=== PATIENT | female | born 1950 | race Caucasian/White ===

== ENCOUNTER 2021-12-02 12:35 | Outpatient (CLI) | payer MEDICARE, SELFPAY ==
--- NOTE | 2021-12-02 13:20 | CRLHL7_ITS ---
For Patients: As a result of the Century Cures Act, medical imaging exams and procedure reports are released immediately into your electronic medical record. You may view this report before your referring provider. If you have questions, please contact your health care provider. BILATERAL SCREENING MAMMOGRAM WITH COMPUTER-AIDED DETECTION TECHNIQUE: CC and MLO views were obtained. These mammographic images have been obtained using full-field digital technique. These mammographic images were interpreted with the benefit of computer-aided detection. COMPARISON FILM: 08/31/19, 07/01/18, 12/20/16 FINDINGS: There are scattered areas of fibroglandular density IMPRESSION: There is no radiographic evidence for malignancy. ASSESSMENT: BI-RADS Category 1: Negative RECOMMENDATION: Routine screening mammogram in 1 year. A lay language report of this examination will be provided to the patient. Dax Hayes M.D. Diagnostic/Musculoskeletal Radiologist [email or web address] CARLA/rose marie jkentrell/Dictated by: Dax Hayes MD @ 12/03/2021 7:48:00 AM (Electronically Signed)
== END 2021-12-02 12:36 | disposition home or self-care (01) ==
LOC: MAMMO 12:37
PROVIDERS: PCP Physician Assistant Medical; Visit Provider Physician Assistant Medical
DX: Z12.31 Encounter for screening mammogram for malignant neoplasm of breast (principal)
CPT/HCPCS: 77067

== ENCOUNTER 2022-06-04 10:22 | Outpatient (CLI) | payer MEDICARE, SELFPAY | END 2022-06-04 10:23 | disposition home or self-care (01) | PROVIDERS: PCP Physician Assistant Medical; Visit Provider Physician Assistant Medical | DX: Z00.00 Encounter for general adult medical examination without abnormal findings (principal); E03.9 Hypothyroidism, unspecified; E55.9 Vitamin D deficiency, unspecified; M85.80 Other specified disorders of bone density and structure, unspecified site | CPT/HCPCS: 80053; 80061; 82306; 84443 ==

== ENCOUNTER 2023-02-03 12:58 | Outpatient (CLI) | payer MEDICARE, SELFPAY ==
--- NOTE | 2023-02-03 13:20 | CRLHL7_ITS ---
For Patients: As a result of the Cures Act, medical imaging exams and procedure reports are released immediately into your electronic medical record. You may view this report before your referring provider. If you have questions, please contact your health care provider. BILATERAL SCREENING MAMMOGRAM WITH COMPUTER-AIDED DETECTION AND TOMOSYNTHESIS TECHNIQUE: CC and MLO views were obtained. These mammographic images have been obtained using full-field digital technique. These mammographic images were interpreted with the benefit of computer-aided detection. Breast Tomosynthesis was used in this interpretation. COMPARISON FILM: 12/02/21, 10/02/20, 08/31/19. FINDINGS: There are scattered areas of fibroglandular density IMPRESSION: There is no radiographic evidence for malignancy. ASSESSMENT: BI-RADS Category 1: Negative RECOMMENDATION: Routine screening mammogram in 1 year. A lay language report of this examination will be provided to the patient. Vick Madsen M.D. Diagnostic Radiologist [email or web address] HUMERA/lisa / be/Dictated by: Vick Madsen MD @ 02/04/2023 8:58:00 AM (Electronically Signed)
== END 2023-02-03 12:59 | disposition home or self-care (01) ==
LOC: MAMMO 12:59
PROVIDERS: PCP Physician Assistant Medical; Visit Provider Physician Assistant Medical
DX: Z12.31 Encounter for screening mammogram for malignant neoplasm of breast (principal)
CPT/HCPCS: 77067

== ENCOUNTER 2023-06-10 07:57 | Outpatient (CLI) | payer MEDICARE, SELFPAY | END 2023-06-10 07:58 | disposition home or self-care (01) | LOC: NFLDREF 06-11 11:56 | PROVIDERS: PCP Physician Assistant Medical; Referring Provider Physician Assistant Medical; Visit Provider Physician Assistant Medical | DX: E03.9 Hypothyroidism, unspecified (principal); E55.9 Vitamin D deficiency, unspecified; M06.9 Rheumatoid arthritis, unspecified; Z13.220 Encounter for screening for lipoid disorders | CPT/HCPCS: 80053; 80061; 82306; 84443 ==

== ENCOUNTER 2024-02-18 10:02 | Outpatient (CLI) | payer MEDICARE, SELFPAY ==
--- NOTE | 2024-02-18 10:15 | CRLHL7_ITS ---
For Patients: As a result of the Century Cures Act, medical imaging exams and procedure reports are released immediately into your electronic medical record. You may view this report before your referring provider. If you have questions, please contact your health care provider. BILATERAL SCREENING MAMMOGRAM WITH COMPUTER-AIDED DETECTION AND TOMOSYNTHESIS TECHNIQUE: CC and MLO views were obtained. These mammographic images have been obtained using full-field digital technique. These mammographic images were interpreted with the benefit of computer-aided detection. Breast Tomosynthesis was used in this interpretation. COMPARISON FILM: 02/03/23, 12/02/21, 10/02/20. FINDINGS: There are scattered areas of fibroglandular density. IMPRESSION: There is no radiographic evidence for malignancy. ASSESSMENT: BI-RADS Category 1: Negative RECOMMENDATION: Routine screening mammogram in 1 year. A lay language report of this examination will be provided to the patient. Vick Madsen M.D. Diagnostic Radiologist [email or web address] SP/Dictated by: Vick Madsen MD @ 02/18/2024 11:08:00 AM (Electronically Signed)
== END 2024-02-18 10:03 | disposition home or self-care (01) ==
PROVIDERS: PCP Physician Assistant Medical; Visit Provider Physician Assistant Medical
DX: Z12.31 Encounter for screening mammogram for malignant neoplasm of breast (principal)
CPT/HCPCS: 77063; 77067

== ENCOUNTER 2024-07-13 07:24 | Outpatient (CLI) | payer MEDICARE, SELFPAY | END 2024-07-13 07:25 | disposition home or self-care (01) | PROVIDERS: PCP Physician Assistant Medical; Visit Provider Physician Assistant Medical | DX: E03.9 Hypothyroidism, unspecified (principal); E55.9 Vitamin D deficiency, unspecified; M06.9 Rheumatoid arthritis, unspecified | CPT/HCPCS: 80053; 80061; 82306; 84443 ==

== ENCOUNTER 2024-08-03 14:20 | Outpatient (CLI) | payer MEDICARE, SELFPAY ==
--- OUTSIDE RECORDS SUMMARY | 2024-07-25 10:15 | XMS_ITS | Encounter Summary ---
[facility] Address [address] [place] [address] Care Team Providers Care Machine Precision Engraver Name Role Phone Kendra Gruber PA-C Primary Care Provider [phone] Reason for Visit * Reason Comments REFERRAL REQUEST Entered automaticall y based on patient selection in [facility]. Encounter Details Date Type Department Care Team (Late Contact Info) Description 07/25/2024 10:15 AM CDT E-Visit Rheumatology at [facility] [address] [id number] Vikash Mace MD [address] [place], [place] [id number] Chief Comp: REFERRAL REQUEST Social History Tobacco Use Types Packs/Day Years Used Date Smoking Tobacco: Never Smokeless Tobacco: Never Alcohol Use Standard Drinks/Week Comments Yes 0 (1 standard drink = 0.6 oz pur e alcohol) rarely Comments Unknown Sex and Gender Information Value Date Recorded Sex Assigned at Not on file Legal Sex Female 8:59 AM CDT Gender Identity Not on file Sexual Orientation Not on file documented as of this encounter Plan of Treatment Upcoming Encounters Date Type Department Care Team (Late Contact Info) Description 08/04/2024 8:30 AM CDT Appointment [facility] [address] [address] [place] [address] [place] [address] 04/24/2025 10:15 AM CDT Appointment Rheumatology at [facility] [place] [id number] [place] [address] [place] [address] Vikash Mace MD [address] [place] [address] documented as of this encounter Visit Diagnoses Not on filedocumented in this encounter Care Teams Machine Precision Engraver Relationship Specialty Start Date End Date Kendra Gruber, PAShyamC [address] [place] [address] PCP - General Physician Clinical Immunologist 11/13/17 documented as of this encounter
--- OUTSIDE RECORDS SUMMARY | 2024-08-01 10:00 | XMS_ITS | Encounter Summary ---
Author Organization [facility] Address [address] [place], [place] [address] [address] Care Team Providers Care Cattle Brander Name Role Phone Kendra Gruber PA-C Primary Care Provider [phone] Reason for Referral * Therapies (Routine) - New Request Specialty Diagnoses / Procedures Referred By Jamar crowe Referred To Contact Diagnoses Chronic pain of left ankle Rose Mary Watts PA-C [address] [facility] [address] [place] [address] [place] [address] Phone: tel: fax: Referral ID Status Reason Start Date Expiration Date V isits Requested Visits Authorized [id number] New Request 08/01/2024 08/01/2025 1 1 Scheduling Instructions Your clinician has recommended an appointment with [facility] Therapy [facility] Services. You can quickly schedule your appointment by signing in to your online account at [email or web address] or through the text message you may have received. You can also make an appointment by calling [phone]. We suggest you call your health insurance company about your coverage and benefits for this appointment. Question Answer Appointment Urgency? Non-Urgent Requested Services Evaluate and treat Reason for Visit General Physical Therapy May use saline for irrigation or cleansing Yes dexamethasone use Yes May check glucose per protocol (see policy link below) or if patient has symptoms? Yes Comments Bone on bone ankle joint. Posterior tibial tendonitis. Eval and treat. Modalities as appropriate. * Procedure/Equipment (Routine) - Incomplete Specialty Diagnoses / Procedures Referred By Contac t Referred To Contact Diagnoses Chronic pain of left ankle Procedures XR Ankle Lt 3 Views Rose Mary Watts PA-C [address] [facility] [place] [address] Phone: tel: fax: Referral ID Status Reason Start Date Expiration Date V isits Requested Visits Authorized [id number] Incomplete 08/01/2024 10/31/2025 1 1 Reason for Visit * Reason Comments CONSULT left ankle OA Encounter Details Date Type Department Care Team (Late st Contact Info) Description 08/01/2024 10:00 AM CDT Office Visit [facility] [address] [place] [phone] Rose Mary Watts PA-C [address] [facility] [place] [id number] Primary osteoarthritis of left ankle (Primary Dx); Posterior tibial tendinitis of left lower extremity Social History Tobacco Use Types Packs/Day Years [...] on file documented as of this encounter Progress Notes * Rose Mary Watts PA-C - 08/01/2024 10:00 AM CDT Subjective: Chief Complaint Left Ankle Pain Lucina Cárdenas is a 73 y.o. female presents for evaluation and treatment of left ankle pain. She reports onset of pain around a year and a half ago with no injury or change in activity. She does enjoy walking and has not noticed when she walks on concrete it hurts her ankle more than walking on softer surfaces. She used to be able to wear boots, but now she can not wear boots due to the pain from the pressure to apply ice, and she is limited in some tennis shoes as well as some socks. She takes Motrin in the morning which does help her pain. She does have a history of a trimalleolar ankle fracture over 30 years ago. Past Medical History, Past Surgical History, Social History, and Family Medical History was reviewed and updated as appropriate. A complete review of systems was reviewed per the intake sheet and negative except as noted in HPI. Allergies Allergen Reactions Ancef [Cefazolin] Hives Cephalosporins Hives Penicillins Hives Morphine Nausea And Vomiting Objective: General : alert, cooperative, no distress, appears stated age Gait: Antalgic. The patient can bear weight on the injured extremity. Skin: Clean, dry, intact. No rashes or lesions. Left Lower Extremity Some limitation to dorsiflexion when compared to her right side. Tender along the posterior tibial tendon. Mild swelling that has area. No pain of the tibiotalar or subtalar joints. Neurovascularly intact. Imaging X-rays: 3 views of the ankle were taken and independently reviewed. [id number] degenerative changes in the tibiotalar joint. No evidence of acute fracture. Assessment: Left ankle osteoarthritis Posterior to the tendonitis Plan: We discussed the diagnosis and treatment options. She did okay with her prior posterior tibial tendon injection, but I would like to hold off on a repeat injection today. I got her in for physical therapy. I do suspect this is originating from her underlying arthritis. If she continues to struggle with her arthritis, I recommended she meet with Dr. Guillermo to discuss the possibility of an ankle replacement. I recommended she use topical Voltaren gel up to 4 times a day. She is okay to continueusing Motrin as needed for pain management. We did discuss prescription equivalent dosing, but right now she is doing okay with 200 mg once a day. Radiology studies and anatomy of the ankle reviewed. Patient verbalized understanding and agreement to our treatment plan. All of her questions were answered to her satifaction. Rose Mary Watts PA-C This note contains medical terminology which is meant for communication between health care clinicians and providers. Please note that vocabulary/phrasing/abbreviations may not carry the same definitions as they would in normal conversational speech. Additionally voice recognition software was usedto generate this note. As a result, wrong word or '[id number]' substitutions may have occurred due to the inherent limitations of voice recognition software. There may be errors in the script that have gone undetected. Please consider this when interpreting information found in this chart. documented in this encounter Plan of Treatment Upcoming Encounters Date Type Department Care Team (Late st Contact Info) Description 08/04/2024 8:30 AM CDT Appointment [facility] [place] [address] [place] [address] [place] [address] [place] [address] 04/24/2025 10:15 AM CDT Appointment Rheumatology at [facility] [address] [address] Vikash Mace MD [address] [place], [place] [phone] Scheduled Referrals Name Type Priority Associated Diagnoses Luciae r Schedule Physical Therapy Referral Routine Primary osteoarthritis of left ankle Ordered: 08/01/2024 documented as of this encounter Results * XR Ankle Lt 3 Views (08/01/2024 10:11 AM CDT) Anatomical Region Laterality Modality Lower Extremity, Ankle, Foot & Ankle Digital Radiography Narrative 08/01/2024 11:20 AM CDT EXAM: XR ANKLE LT 3 VIEWS INDICATION: left ankle pain COMPARISON: None. FINDINGS: There is moderate to advanced degenerative arthritis in the left tibiotalar joint. Spurring of the medial and lateral malleoli may be degenerative or secondary to prior trauma. There is moderate degenerative spurring in the middle facet of the subtalar joint. There is an old fracture deformity of the distal left fibula. No evidence of acute fracture. Small plantar calcaneal spur. Signed by: Moy Wiggins 08/01/2024 11:20 AM Procedure Note Moy Wiggins MD - 08/01/2024 EXAM: XR ANKLE LT 3 VIEWS INDICATION: left ankle pain COMPARISON: None. FINDINGS: There is moderate to advanced degenerative arthritis in the lefttibiotalar joint. Spurring of the medial and lateral malleoli may be degenerative or secondary to prior trauma. There is moderatedegenerative spurring in the middle facet of the subtalar joint. There is an old fracture deformity of the distal left fibula. Noevidence of acute fracture. Small plantar calcaneal spur. Signed by: Moy Wiggins 08/01/2024 11:20 AM us Rose Mary Watts PA-C RAD GD Final Re sult documented in this encounter Visit Diagnoses Diagnosis Primary osteoarthritis of left ankle- Primary Posterior tibial tendinitis of left lower extremity Chronic pain of left ankle documented in this encounter Care Teams Cattle Brander Relationship Specialty Start Date End Date Kendra Gruber PA-C [address] [place] [address] PCP - General Physician Golf Tournament Consultant 11/13/17 documented as of this encounter
--- OUTSIDE RECORDS SUMMARY | 2024-08-01 10:05 | XMS_ITS | Encounter Summary ---
Author Organization [facility] Address [address] [address] Care Team Providers Care Instructional Services Specialist Name Role Phone Kendra Gruber PA-C Primary Care Provider [phone] Reason for Visit * Procedure/Equipment (Routine) - Incomplete Specialty Diagnoses / Procedures Referred By Contac t Referred To Contact Diagnoses Chronic pain of left ankle Procedures XR Ankle Lt 3 Views Rose Mary Watts PA-C [address] [place] [address] Phone: tel: fax: Referral ID Status Reason Start Date Expiration Date V isits Requested Visits Authorized [id number] Incomplete 08/01/2024 10/31/2025 1 1 Encounter Details Date Type Department Care Team (Late st Contact Info) Description 08/01/2024 10:05 AM CDT Ancillary Procedure [facility] [address] [address] [address] [place] [address] Rose Mary Watts PA-C [address] [facility] [place] [address] Chronic pain of left ankle Social History Tobacco Use Types Packs/Day Years [...] 8:30 AM CDT Appointment [facility] [place] [address] [place] [address] [place] [address] [place] [address] 04/24/2025 10:15 AM CDT Appointment Rheumatology at [facility] [address] [address] [place] [address] Vikash Mace MD [address] [place], [place] [address] documented as of this encounter Procedures Procedure Name Priority Date/Time Associated Diagnosis Comments XR ANKLE LT 3 VIEWS Routine 08/01/2024 1 0:11 AM CDT Chronic pain of left ankle documented in this encounter Results * XR Ankle Lt [...] Signed by: Moy Wiggins 08/01/2024 11:20 AM Rose Mary Watts PA-C RAD GD Final Re sult documented in this encounter Visit Diagnoses Diagnosis Chronic pain of left ankle documented in this encounter Care Teams Instructional Services Specialist Relationship Specialty Start Date End Date Kendra Gruber PA-C [address] [place] [address] PCP - General Physician Hardware Supplies Sales Representative 11/13/17 documented as of this encounter
--- NOTE | 2024-08-03 15:00 | CRLHL7_ITS ---
For Patients: As a result of the Century Cures Act, medical imaging exams and procedure reports are released immediately into your electronic medical record. You may view this report before your referring provider. If you have questions, please contact your health care provider. DXA BONE MINERAL DENSITY STUDY Reason for exam: Asymptomatic menopausal state. Current height (in): 64. Weight (lb): 182. Menopause age: 52. Ethnicity: White. 1. Have you had a previous hip or vertebral fracture? No. 2. Have you had any fractures during your adult life which did not result from significant trauma (e.g., auto accident)? No. 3. Did either of your parents have a hip fracture? No. 4. Do you smoke? No. 5. Have you ever taken Glucocorticoids? Yes. 6. Do you have rheumatoid arthritis? Yes. 7. Do you have secondary osteoporosis? No. 8. Do you drink 3 or more alcoholic drinks per day? No. 9. Are you being treated for osteoporosis? No. 10. Have you ever taken any of the following medications: Actonel, Evista, Fosamax, Miacalcin, Reclast, Boniva, Forteo, HRT (i.e. estrogen/hormone therapy), Protelos, Prolia, Vitamin D, Calcium, other ??? please specify. ANSWER: Yes, vitamin D and HRT (i.e., estrogen/hormone therapy). 11. Do you have any of the following medical conditions: Anorexia or bulimia, asthma or emphysema, end stage renal disease, hyperparathyroidism, any seizure disorders, cancer, inflammatory bowel diseases, hysterectomy, other ??? please specify. ANSWER: Yes, hysterectomy. 12. What was your maximum height (inches)? 65.5. 13. Do you perform weight bearing exercise regularly? Yes. 14. Do you regularly consume dairy products? Yes. 15. Do you drink caffeinated beverages? Yes. 16. At what age did your period start? 16. 17. Are you premenopausal? No. 18. How many full-term pregnancies have you had? 1. 19. Have you ever missed your period for more than 6 months in a row (not including or menopause)? No. TECHNIQUE: Bone mineral density study was performed using the [employer]. FINDINGS: The results of the study expressed as bone mineral density (BMD) are as follows: Lumbar spine L1 to L4: BMD: 1.241 g/cm2. T-score: 1.8. Z-score: 4.0. Neck Left: BMD: 0.618 g/cm2. T-score: -2.1. Z-score: -0.2. Right: BMD: 0.681 g/cm2. T-score: -1.5. Z-score: 0.4. Total Left: BMD: 0.794 g/cm2. T-score: -1.2. Z-score: 0.4. Right: BMD: 0.752 g/cm2. T-score: -1.6. Z-score: 0.0. IMPRESSION: Osteopenia. *Comparison exams done prior to 07/2019 were performed on different unit, [employer]. COMPARISON: Compared with scan of 07/10/2022, the bone mineral density has increased by 4.4 percent at the spine and decreased by 1.1 percent at the hip. Compared with scan of 08/31/2019, the bone mineral density has decreased by 2.6 percent at the spine and increased by 0.3 percent at the hip. FRAX 10-year Fracture Risk Major Osteoporotic Fracture: 24 percent Hip Fracture: 6.3 percent Reported Risk Factors: [place] () Neck BMD=0.618, BMI=31.2, glucocorticoids, rheumatoid arthritis Vick Madsen M.D. Diagnostic Radiologist [email or web address] HUMERA/rose marie trotter/Dictated by: Vick Madsen MD @ 08/04/2024 8:53:00 AM (Electronically Signed)
--- OUTSIDE RECORDS SUMMARY | 2024-08-04 00:27 | XMS_ITS | Clinical Summary ---
Author Organization [facility] Address [address] [place] [address] Care Team Providers Care Transit Survey Worker Name Role Phone Kendra Gruber PA-C Primary Care Provider [phone] Source Comments You are receiving this document as you are listed as the primary care provider,follow-up provider, or the patient has been referred to you for consultation.This is in compliance with the Medicare andMedicaid EHR Incentive Program,which states Providers who transition their patient to another setting of careor provider of care or refers their patient to another provider of care shouldprovide summary care record for each transition of care or referral. [facility] Allergies Active Allergy Reactions Criticality Noted Date Comments Cefazolin Hives High 11/18/2017 Cephalosporins Hives High 11/18/2017 Morphine Nausea And Vomiting 11/18/2017 Penicillins Hives High 11/18/2017 Medications levothyroxine (SYNTHROID) 88 MCG tablet Take 1 Tablet (88 mcg) by mouth daily. 1 8 Active folic Acid 800 MCG tablet Take 1 Tablet (800 mcg) by mouth daily. Active Cholecalciferol (VITAMIN D) 50 MCG (1999 UT) tablet 8 Active Ibuprofen 200 MG capsule Take 2 Capsules by mouth every 24 hours as needed for Pain. 4 Active methotrexate 2.5 MG tabletIndicatio ns:Rheumatoid Arthritis Take 6 Tablets (15 mg) by mouth once every week. Indications: Rheumatoid Arthritis 78 Tablet 1 5 Active cetirizine (ZYRTEC) 5 MG tablet Take 1 Tablet (5 mg) by mouth daily. Active Active Problems Problem Noted Date Diagnosed Date Hereditary and idiopathic peripheral neuropathy 04/20/2024 Posterior tibial tendonitis, left 02/22/2024 Osteoarthritis of fingers of hands, bilateral Trochanteric bursitis, left hip 04/15/2021 Sciatica, left side 04/15/2021 Myofascial muscle pain 04/11/2020 Trochanteric bursitis, right hip 12/16/2017 Non morbid obesity due to excess calories 2015 Rheumatoid arthritis involvi ng multiple sites with positive rheumatoid factor 12/28/2013 group home methotrexate user 12/28/2013 Acquired hypothyroidism 01/08/2007 Overview (12/16/2017): Overview: Abstracted at [place] from the [facility] medical record. Allergic rhinitis due to food 01/08/2007 Overview (12/16/2017): Overview: [place] but requires certain amount Encounters Date Type Department Care Team Description 08/01/2024 10:05 AM CDT Ancillary Procedure [facility] [address] [address] [address] [place] [address] Rose Mary Watts PA-C Chronic pain of left ankle 08/01/2024 10:00 AM CDT Office Visit [facility] [address] [place] [address] Rose Mary Watts PA-C Primary osteoarthritis of left ankle (Primary Dx); Posterior tibial tendinitis of left lower extremity 07/25/2024 10:15 AM CDT E-Visit Rheumatology at [facility] [place] [address] [address] [address] [place] [address] Vikash Mace MD Chief Comp: REFERRAL REQUEST from Last 3 Months Immunizations Immunization Administration Dates Next Due Flu Vac (3+ yrs) 11/09/2016,11/14/2010 Influenza IIV4 (Quadrivalent) 0.5mL (85656) 10/11,10/25/2019 Influenza IIV4 (Quadrivalent ) Fluad, 65+ Yrs 11/20/2021,11/21/2020,10/25/2019 Influenza, Unspecified Formulation 11/07/2019 PCV13 (Prevnar) 06/04/2016 PPSV23 (Pneumovax) 07/27/2019,05/24/2014 Pfizer Monovalent 12+ Purple Top 02/11/2021,04/10,04/14/2020 TB Skin Test (PPD) 10/16/2015,11/14/2010 Tdap 11/21/2010 Zoster (Zostavax) 05/19/2013 Zoster RZV (Shingrix) 10/30/2020,07/18/2020 Social History Tobacco Use Types Packs/Day Years Used Date Smoking Tobacco: Never Smokeless Tobacco: Never Alcohol Use Standard Drinks/Week Comments Yes 0 (1 standard drink = 0.6 oz pur e alcohol) rarely Comments Unknown Sex and Gender Information Value Date Recorded Sex Assigned at Not on file Legal Sex Female 8:59 AM CDT Gender Identity Not on file Sexual Orientation Not on file Last Filed Vital Signs Vital Sign Reading Time Taken Comments Blood Pressure 116/73 04/20/2024 9:04 AM CDT Pulse 75 04/20/2024 9:04 AM CDT Temperature 36 C (96.8 F) 04/14/2022 8:32 AM BEREAVEMENT COORDINATOR Respiratory Rate - - Oxygen Saturation - - Inhaled Oxygen Concentration - - Weight 83.5 kg (184 lb) 04/20/2024 9:04 AM CDT Height 165.1 cm (5' 5) 12/16/2017 10:19 AM BEREAVEMENT COORDINATOR Body Mass Index 30.62 12/16/2017 10:19 AM BEREAVEMENT COORDINATOR Plan of Treatment Upcoming Encounters Date Type Department Care Team (Late st Contact Info) Description 08/04/2024 8:30 AM CDT Appointment [facility] [address] [address] [place] [address] [place], [place] [id number] 04/24/2025 10:15 AM CDT Appointment Rheumatology at [facility] [place] [id number] [place] [address] [place], [place] [address] Vikash Mace MD [address] [place] [address] Health Maintenance Due Date Last Done Comments Colon Cancer Screening Plan Due 1950 Mammogram 1950 Cholesterol 1997 Dexa 2017 DTaP/Tdap/Td Vaccine (2 - Tdap) 11/21/2020 11/21/2010 COVID-19 Vaccine (4 - season) 2023 02/11/2021, 05/05/2020, 04/14/2020 Medicare Annual Wellness Visit 02/10/2024 RSV Vaccine (1 - 1-dose 75+ series) 10/13/2027 Hep C Screening (Preventive Services) Completed 12/16/2017 Pneumococcal Vaccine 50+ Yrs Completed , 06/04/2016, 05/24/2014 Zoster/Shingles Vaccine Completed 10/31/19, 07/18/2020, 05/19/2013 Influenza Vaccine Completed 12/01/2023, , 11/20/2021, Additional history exists HepA Vaccine Aged Out No longer eligi ble based on patient's age to complete this topic HepB Vaccine Aged Out No longer eligi ble based on patient's age to complete this topic Hib Vaccine Aged Out No longer eligi ble based on patient's age to complete this topic MCV4 Vaccine Aged Out No longer eligi ble based on patient's age to complete this topic Meningococcal B Vaccine Aged Out No l onger eligible based on patient's age to complete this topic Procedures Procedure Name Priority Date/Time Associated Diagnosis Comments XR ANKLE LT 3 VIEWS Routine 08/01/2024 1 0:11 AM CDT Chronic pain of left ankle HEPATITIS C ANTIBODY, WITH REFLEX (ANTI-HCV) Routine 12/16/2017 11:16 AM BEREAVEMENT COORDINATOR Rheumatoid arthritis involving multiple sites with positive rheumatoid factor (HRC) from Last 3 Months or Most Recently Relevant to Health Maintenance Results * XR Ankle Lt 3 Views [...] Watts PA-C RAD GD Final Re sult * [facility] - Hepatitis C Virus Sonal with Reflex In-House (12/16/2017 11:16 AM BEREAVEMENT COORDINATOR) Hepatitis C Antibody Nonreactive Nonreactive PN SOFT 12/16/2017 11:1 6 AM BEREAVEMENT COORDINATOR 12/16/2017 4:20 PM BEREAVEMENT COORDINATOR Narrative PN SOFT - 12/16/2017 5:46 PM BEREAVEMENT COORDINATOR Performed at [facility] [place] [address] CLIA number [id number] us Vikash Mace MD LAB_1 Final Result PN SOFT [address] [place] [address] from Last 3 Months or Most Recently Relevant to Health Maintenance Insurance [facility] MEDICARE Care Teams Transit Survey Worker Relationship Specialty Start Date End Date Kendra Gruber, MENDOZAC [address] [place] [address] PCP - General Physician Gardening Manager 11/13/17
--- OUTSIDE RECORDS SUMMARY | 2024-08-04 00:27 | XMS_ITS | Encounter Summary ---
Author Organization [facility] Address [address] [place] [address] Care Team Providers Care Record Retrieval Specialist Name Role Phone Kendra Gruber PA-C Primary Care Provider [phone] Encounter Details Date Type Department Care Team (Late st Contact Info) Description 04/20/2024 Results Follow-Up Rheumatology at [address] [address] Vikash Mace MD [address] [place], [place] [id number] Social History Tobacco Use Types Packs/Day Years [...] 8:30 AM CDT Appointment [facility] [address] [address] [place] [address] [place] [address] 04/24/2025 10:15 AM CDT Appointment Rheumatology at [address] [address] Vikash Mace MD [address] [place], [place] [id number] documented as of this encounter Visit Diagnoses Not on filedocumented in this encounter Care Teams Record Retrieval Specialist Relationship Specialty Start Date End Date Kendra Gruber PA-C [address] [place] [address] PCP - General Physician Senior Living Advisor 11/13/17 documented as of this encounter
== END 2024-08-03 14:21 | disposition home or self-care (01) ==
LOC: RAD 14:21
PROVIDERS: PCP Physician Assistant Medical; Visit Provider Physician Assistant Medical
DX: Z78.0 Asymptomatic menopausal state (principal); M85.859 Other specified disorders of bone density and structure, unspecified thigh; E03.9 Hypothyroidism, unspecified; M06.9 Rheumatoid arthritis, unspecified; E55.9 Vitamin D deficiency, unspecified
CPT/HCPCS: 77080